=== PATIENT | male | born 1955 | race Hispanic/Latino ===

== ENCOUNTER 2017-09-29 19:25 | Emergency (ER) | payer OTHER ==
[~2017-09-29] VITALS: Ht 172.7 cm; Wt 77.1 kg
[2017-09-29 20:07] LABS: ABSOLUTE BASOPHIL COUNT 0 /CUMM (0.0-0.2); ABSOLUTE EOSINOPHIL COUNT 0 /CUMM (0.0-0.7); ABSOLUTE GRANULOCYTE CT 2.5 /CUMM (1.4-6.5); ABSOLUTE LYMPH COUNT 0.2 /CUMM (1.2-3.4); ABSOLUTE MONOCYTE COUNT 0 /CUMM (0.10-0.60); BASOPHIL % 0 % (0.0-2.0); EOSINOPHIL % 0.2 % (0-5); GRANULOCYTE % 90.7 % (42.2-75.2); HEMATOCRIT 51.7 % (42-52); MEAN CORPUSCULAR HGB 29.4 PG (27.0-31.0); MEAN CORPUSCULAR HGB CONC 33.9 G/DL (33.0-37.0); MEAN CORPUSCULAR VOLUME 86.7 FL (80.0-94.0); MEAN PLATELET VOLUME 7.9 FL (7.4-10.4); RBC DISTRIBUTION WIDTH 14.8 % (11.5-14.5); RED BLOOD CELL CT 5.97 /CUMM (4.70-6.10); WHITE BLOOD CELL COUNT 2.8 /CUMM (4.8-10.8)
--- NOTE | 2017-09-29 20:14 | ED GI/GU/ABDOMINAL COMPLAINT ---
See Addendum History of Present Illness General Chief Complaint: Abdominal Pain/Flank Pain Stated Complaint: ABD PAIN,VOMITING,DIARRHEA Source: patient, family Exam Limitations: no limitations Vital Signs & Intake/Output Vital Signs & Intake/Output Vital Signs Date Time Temp Pulse Resp B/P B/P Pulse O2 O2 Flow FiO2 Mean Ox Delivery Rate 09/30 0134 110 20 92/60 94 Room Air 09/30 0115 99.1 110 20 93/60 96 Room Air 09/30 0105 99.1 113 22 81/56 95 Room Air 09/30 0050 99.2 115 22 81/51 96 Room Air 09/29 2320 72/50 09/29 2224 101.1 113 18 70/54 94 Room Air 09/29 1956 103.0 128 20 110/65 93 Room Air ED Intake and Output 09/30 0000 09/29 1200 Intake Total 1060 Output Total Balance 1060 Intake, IV 1000 Intake, Oral 60 Patient 170 lb Weight Weight Estimated Measurement Method Allergies Coded Allergies: No Known Allergies (09/29/17) Triage Note: RECEIVED 62 YO MALE UST ARRIVED TODAY FROM [place] 2 PM TODAY. C/O NAUSEA, VOMITING, DIARRHEA, ABDOMINAL PAIN, DIZZINESS WITH SOME CONFUSION REPORTED BY DAUGHTER. SYMPTOMS STARTED LAST NIGHT IN [facility] ABD BECAME WORSE TODAY. Triage Nurses Notes Reviewed? yes HPI: 62 yo M presenting with nausea, vomiting, diarrhea, abdominal pain. Patient developed nausea with 10+ episodes of nonbloody nonbilious emesis since last night. Associated diarrhea with multiple loose watery bowel movements. Abdominal pain, diffuse, worse in the epigastrium, waxing and waning intensity. Patient flew back from [facility] this morning, shortly after landing was picked up by his daughter who found him confused, vomiting, episodes of diarrhea. On arrival patient is mildly confused, complaining of nausea and diffuse abdominal pain. Denies chest pain, palpitations, shortness of breath, headache, neck pain , or focal neurologic symptoms. (Silvestre STOCKTON,Kali) Duration: day(s): Timing: recent history Quality/Severity: cramping Location: generalized abdomen Radiation: no radiation Activities at Onset: none Prior Abdominal Problems: none No Modifying Factors: none Associated Symptoms: abdominal pain, diarrhea, nausea/vomiting (Sandra STOCKTON,Florian Galindo) Past History Travel History Traveled to [place] past 21 day No Medical History Any Pertinent Medical History? see below for history Neurological: NONE EENT: NONE Cardiovascular: NONE Respiratory: NONE Gastrointestinal: NONE Hepatic: NONE Renal: NONE Musculoskeletal: NONE Psychiatric: NONE Endocrine: NONE Surgical History Surgical History: none Psychosocial History What is your primary language Marshallese Tobacco Use: Never used Family History Hx Contributory? Yes (Kali Rivers MD) Review of Systems Review of Systems Constitutional: Reports: no symptoms. EENTM: Reports: no symptoms. Respiratory: Reports: no symptoms. Cardiovascular: Reports: no symptoms. GI: Reports: abdominal pain, nausea, vomiting. Genitourinary: Reports: no symptoms. Musculoskeletal: Reports: no symptoms. Skin: Reports: no symptoms. Neurological/Psychological: Reports: no symptoms. Hematologic/Endocrine: Reports: no symptoms. Immunologic/Allergic: Reports: no symptoms. All Other Systems: Reviewed and Negative (Kali Rivers MD) Physical Exam Physical Exam General Appearance: well developed/nourished, moderate distress Head: atraumatic Eyes: Bilateral: PERRL, EOMI. Ears, Nose, Throat, Mouth: moist mucous membrane Neck: normal inspection, full range of motion Respiratory: normal breath sounds, no respiratory distress, lungs clear Cardiovascular: regular rate/rhythm, normal peripheral pulses Gastrointestinal: normal bowel sounds, soft, tenderness Comments: General: Appears fatigued, intermittent confused speech, rousible and responsing to questions appropriately Abdomen: Soft, Marked diffuse TTP worst in the epigasrtum with involuntary guarding, does not endorse rebound Core Measures ACS in differential dx? No Sepsis Present: Yes Sepsis Focused Exam Completed? Yes (Kali Rivers MD) Progress Differential Diagnosis: AAA, AMI, appendicitis, biliary colic, bowel obstruction , colon cancer, cholecystitis, diverticulitis, epididymitis, esophageal varices, gastritis, hepatitis, hernia, hemorrhoids, ischemic bowel, inflamm bowel dis, Joana-Charlene tear, orchitis, pancreatitis, prostatitis, peptic ulcer, PUD/GERD, perforated viscous, pyelonephritis, SBO, STD, testicular torsion, ureterolithiasis, urinary retention, urethritis, UTI/pyelo Plan of Care: Orders Procedure Date/time Status ARTERIAL BLOOD GAS (GEN) 09/30 0058 Active RAPID VIRAL INFLUENZA A 09/29 2016 Complete CULTURE,URINE 09/30 2015 Active BLOOD CULTURE 09/30 2015 Active EKG 09/29 2009 Active TROPONIN LEVEL 09/30 1955 Complete LACTIC ACID 09/30 1955 Complete URINALYSIS 09/30 1939 Active LIPASE 09/30 1939 Complete COMPREHENSIVE METABOLIC PANEL 09/30 1939 Complete CBC WITHOUT DIFFERENTIAL 09/30 1939 Complete Current Medications Sig/Chiqui Start time Last Medication Dose Stop Time Status Admin Sodium Chloride 1,000 ML BOLUS ONE 09/30 0015 AC (Normal Saline 0.9%) 09/30 0214 Norepinephrine 4 MG Q24H 09/29 233 AC (Levophed Drip) Dextrose/Water 250 ML (Dextrose 5%) Laboratory Tests 09/29/172012: Lactic Acid Cancelled, Troponin I Cancelled 09/29/171955: Anion Gap 15, Estimated GFR > 60, BUN/Creatinine Ratio 14.5, Glucose 128 H, Lactic Acid 4.4 H, Calcium 9.7, Total Bilirubin 3.4 H, AST 294 H, ALT 208 H, Alkaline Phosphatase 118, Troponin I 0.04, Total Protein 7.5, Albumin 4.4, Globulin 3.1, Albumin/Globulin Ratio 1.4, Lipase 94, CBC w Diff MAN DIFF ORDERED , RBC 5.97, MCV 86.7, MCH 29.4, MCHC 33.9, RDW 14.8 H, MPV 7.9, Gran % 90.7 H, Lymphocytes % 8.9 L, Monocytes % 0.2 L, Eosinophils % 0.2, Basophils % 0, Absolute Granulocytes 2.5, Segmented Neutrophils 76 H, Band Neutrophils 12 H, Absolute Lymphocytes 0.2 L, Lymphocytes 11 L, Monocytes 1 L, Absolute Monocytes 0 L, Absolute Eosinophils 0, Absolute Basophils 0, Platelet Estimate ADEQUATE, Normocytic RBCs VERIFIED, Normochromic RBCs VERIFIED Microbiology 09/29 2229 NASOPHARYN: Influenza Virus A & B Rapid Smear - COMP 09/29 2221 BLOOD: Blood Culture - RECD 09/29 2037 BLOOD: Blood Culture - RECD 09/30 2015 URINE ROUT: Urine Culture - ORD Physician MDM: 62 yo M presenting with nausea, vomiting, diarrhea, abdominal pain. Tachycardic in the 120s, BP stable, febrile to 103, remainder of exam as above. DDx: Gastroenteritis, Influenza, Cholecystitis, Ascending cholangitits, low concern for ACS or aortic pathology. 2L NS ordered. CBC with leukopenia to 2.8, bandemia of 12, normal hemoglobin. CMP with hypokalemia 3.4, elevated AST ALT, elevated total bilirubin at 3.4. Lactate 4.4. Third normal saline, ceftazidime, vancomycin ordered, CT abdomen and pelvis pending. Hypotension with systolic blood pressures in the 70s despite fluid resuscitation, fourth liter normal saline started, no improvement of blood pressure, persistent systolic blood pressures in the 70s. Patient and daughter consented for placement of a right IJ central line. Patient cleaned and draped in the usual fashion with sterile cover, gloves, gown, right IJ visualized with ultrasound, accessed under ultrasound guidance, good return of dark venous blood, central line wire followed with ultrasound coursing into IJ, procedure tolerated well, post procedure ultrasound with good venous flash into right heart. Levophed started. CT abdomen and pelvis with cholecystitis, surgery consulted. CXR for triple line confirmation pending. And for admission to intensive care setting given pressor requirements. Initial ED EKG: rhythm, Sinus tachycardia (Silvestre STOCKTON,Kali) Diagnostic Imaging: Viewed by Me: Radiology Read, CT Scan. Discussed w/RAD: Radiology Read, CT Scan. CXR Impression: PATIENT: ROCKY LOPEZ PRESENT AGE: 62 PATIENT ACCOUNT NO: [id number] : 53 LOCATION: [facility] ORDERING PHYSICIAN: Kali Rivers MD SERVICE DATE: 09/30/17 EXAM TYPE: RAD - XRY-PORTABLE CHEST XRAY EXAMINATION: CHEST 1 VIEW CLINICAL INFORMATION: Line placement. COMPARISON: September 29, 2017. TECHNIQUE: An AP view of the chest is provided. FINDINGS: The cardiac silhouette is not enlarged. A right central venous line has been placed. The tip overlies the distal SVC near the right atrial junction. The mediastinal and hilar contours are unremarkable. There are neither pleural effusions nor pneumothoraces. There is mild volume loss to the right lung with atelectasis at the right lung base. The osseous structures are unremarkable. IMPRESSION: Right central venous line in place. Mild atelectasis within the right lung base. DICTATED BY: Pa Szymanski MD DATE/TIME DICTATED:09/30/1718 ENERGY CONSERVATION TECHNICIAN:BETHANY DATE/TIME TRANSCRIBED:09/30/1718 CONFIDENTIAL, DO NOT COPY WITHOUT APPROPRIATE AUTHORIZATION. <Electronically signed in Other Vendor System> SIGNED BY: Pa Szymanski MD 09/30/17 0023, PATIENT: ROCKY LOPEZ PRESENT AGE: 62 PATIENT ACCOUNT NO: [id number] : 53 LOCATION: [facility] ORDERING PHYSICIAN: Kali Rivers MD SERVICE DATE: 09/29/17 EXAM TYPE: CAT - CT ABD & PELVIS W IV CONTRAST EXAMINATION: CT ABD PELVIS W IV CONTRAST CLINICAL INFORMATION: Reason for Study:
Presumptive Dx: Colitis
Signs Symptoms: N/V/D, AP
COMPARISON: None TECHNIQUE: Multidetector volumetric imaging was performed from the superior aspect of the liver through the pubic symphysis IV contrast injected. Sagittal and coronal reformatted images were obtained on the technologist's workstation. DLP: 617 9 mGy-cm FINDINGS: LOWER THORAX: Included lung bases are clear. HEPATOBILIARY: No focal hepatic lesions. No biliary ductal dilatation. GALLBLADDER: Gallbladder is distended, there is a pericholecystic fluid collection and fat stranding around the gallbladder bed raising concern for possible cholecystitis. SPLEEN: Spleen is normal in size. PANCREAS: No focal mass or ductal dilatation. STOMACH AND GASTROINTESTINAL TRACT: Stomach is grossly unremarkable. Mildly dilated small bowel loops in the midabdomen and LEFT upper quadrants might be regional ileus. No CT evidence of appendicitis. ADRENALS: No adrenal nodules. KIDNEYS/URETERS: No hydronephrosis, stones or solid mass lesions. URINARY BLADDER: Unremarkable PELVIC VISCERA: There is LEFT inguinal hernia containing fat and mesentery. No bowels. Rectum and perirectal fat are clear. Urinary bladder is unopacified. PERITONEUM: No free air or fluid. LYMPH NODES: No lymphadenopathy. VASCULAR: Unremarkable BONES, ABDOMINAL WALL AND SOFT TISSUES: Age-appropriate changes of the spine and skeletal system, no destructive osteolytic or osteosclerotic bone lesion found IMPRESSION: 1. Dilated gallbladder, the wall of which are edematous combined with pericholecystic fluid collection and fat stranding raising concern for possible cholecystitis. This can be assessed further with ultrasound or HIDA scan. 2. Mildly dilated small bowel loops in the midabdomen and LEFT upper quadrants might be a regional ileus. 3. Left inguinal hernia. DICTATED BY: Keely STOCKTON, Jasmeet DATE/TIME DICTATED:09/29/172245 ENERGY CONSERVATION TECHNICIAN:BETHANY DATE/TIME TRANSCRIBED:09/29/172245 CONFIDENTIAL, DO NOT COPY WITHOUT APPROPRIATE AUTHORIZATION. <Electronically signed in Other Vendor System> SIGNED BY: Keely STOCKTON,Hadeer 09/29/17 1111 (Sandra STOCKTON,Florian Galindo) Departure Departure Disposition: STILL A PATIENT Condition: Stable Departure Forms: Customer Survey General Discharge Information Admission Note Documentation of Exam: Documentation of any treatments & extenuating circumstances including Concerns Regarding Discharge (functional status, medication knowledge or non-compliance, living conditions, etc.) that warrant an admission rather than observation: [ Patient is critically ill in septic shock secondary to cholecystitis with an ongoing vasopressor requirement] (Silvestre STOCKTON,Kali) Departure Clinical Impression Primary Impression: Septic shock Secondary Impressions: Cholangitis, Lactic acidosis Comments 09/30/17, 0:02... discussed with dr. beth... pt merits [facility]. 09/30/17, 0:22... discussed with dr. ruelas... [facility] unavailable... discussed with family who consent for transfer. 09/30/17, 1:19am... levophed at 15 mcg/min... sbp 91... pt feeling better... discussed with [facility] professional housing consultant, [facility] (Sandra STOCKTON,Florian Galindo) Procedures Central Line Central Line Lumen: triple Central Line Procedure: Yes: bentadine prep?, sterile drapes applied, sterile dressing applied. Central Line Position: internal jugular (R) Anesthesia: lidocaine 1% CC's of Anesthesia: 3 Complications: none Central Line Post Position: sutured, good blood return, position confirmed w/ CXR (Sandra STOCKTON,Florian Galindo) Critical Care Note Critical Care Note Critical Care Time: 75-104 min (Sandra STOCKTON,Florian Galindo)
[2017-09-29 21:40] LABS: PLATELET COUNT 151 /CUMM (130-400)
--- NOTE | 2017-09-29 23:29 | CT SCAN REPORT ---
EXAMINATION: CT ABD PELVIS W IV CONTRAST CLINICAL INFORMATION: Reason for Study:
Presumptive Dx: Colitis
Signs Symptoms: N/V/D, AP
COMPARISON: None TECHNIQUE: Multidetector volumetric imaging was performed from the superior aspect of the liver through the pubic symphysis IV contrast injected. Sagittal and coronal reformatted images were obtained on the technologist's workstation. DLP: 617 9 mGy-cm FINDINGS: LOWER THORAX: Included lung bases are clear. HEPATOBILIARY: No focal hepatic lesions. No biliary ductal dilatation. GALLBLADDER: Gallbladder is distended, there is a pericholecystic fluid collection and fat stranding around the gallbladder bed raising concern for possible cholecystitis. SPLEEN: Spleen is normal in size. PANCREAS: No focal mass or ductal dilatation. STOMACH AND GASTROINTESTINAL TRACT: Stomach is grossly unremarkable. Mildly dilated small bowel loops in the midabdomen and LEFT upper quadrants might be regional ileus. No CT evidence of appendicitis. ADRENALS: No adrenal nodules. KIDNEYS/URETERS: No hydronephrosis, stones or solid mass lesions. URINARY BLADDER: Unremarkable PELVIC VISCERA: There is LEFT inguinal hernia containing fat and mesentery. No bowels. Rectum and perirectal fat are clear. Urinary bladder is unopacified. PERITONEUM: No free air or fluid. LYMPH NODES: No lymphadenopathy. VASCULAR: Unremarkable BONES, ABDOMINAL WALL AND SOFT TISSUES: Age-appropriate changes of the spine and skeletal system, no destructive osteolytic or osteosclerotic bone lesion found IMPRESSION: 1. Dilated gallbladder, the wall of which are edematous combined with pericholecystic fluid collection and fat stranding raising concern for possible cholecystitis. This can be assessed further with ultrasound or HIDA scan. 2. Mildly dilated small bowel loops in the midabdomen and LEFT upper quadrants might be a regional ileus. 3. Left inguinal hernia.
--- NOTE | 2017-09-30 00:23 | RADIOLOGY REPORT ---
EXAMINATION: CHEST 1 VIEW CLINICAL INFORMATION: Line placement. COMPARISON: September 29, 2017. TECHNIQUE: An AP view of the chest is provided. FINDINGS: The cardiac silhouette is not enlarged. A right central venous line has been placed. The tip overlies the distal SVC near the right atrial junction. The mediastinal and hilar contours are unremarkable. There are neither pleural effusions nor pneumothoraces. There is mild volume loss to the right lung with atelectasis at the right lung base. The osseous structures are unremarkable. IMPRESSION: Right central venous line in place. Mild atelectasis within the right lung base.
[2017-09-30 01:34] VITALS: BP 92/60
== END 2017-09-30 02:22 | disposition short-term general hospital (02) ==
LOC: ERH 19:25
PROVIDERS: Physician Assistant Medical
DX: R65.21 Severe sepsis with septic shock (principal); K83.0 Cholangitis; E87.2 Acidosis
CPT/HCPCS: 71045; 74177; 87040; 87086; 87804; 87804-59; 93005; 93010; 96374; 96375; 99291; J0131; J0713; J2405; J3370; J7060